=== PATIENT | female | born 2000 | race African-American/Black ===

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

== ENCOUNTER 2019-07-01 19:00 | Emergency (ER) | payer OTHER ==
[~2019-07-01] VITALS: Ht 165.1 cm; Wt 68.5 kg
[~2019-07-01 19:00] MED LIST: PREDNISONE 20 M20 MG PO; VENTOLIN HFA 1818 GM INH
[2019-07-01] MEDS ORDERED: IBU600 MG PO (19:44)
[2019-07-01 19:49] VITALS: BP 122/73
== END 2019-07-01 19:55 | disposition home or self-care (01) ==
LOC: ER 19:00
DX: S93.601A Unspecified sprain of right foot, initial encounter (principal); S93.401A Sprain of unspecified ligament of right ankle, initial encounter; J45.909 Unspecified asthma, uncomplicated; V89.2XXA Person injured in unspecified motor-vehicle accident, traffic, initial encounter; Y93.89 Activity, other specified; Y92.89 Other specified places as the place of occurrence of the external cause; Y99.8 Other external cause status

== ENCOUNTER 2020-06-19 17:33 | Emergency (ER) | payer OTHER ==
[~2020-06-19] VITALS: Ht 165.1 cm; Wt 76.7 kg
[~2020-06-19 17:33] MED LIST changes: +IBU600 MG PO
[2020-06-19 17:37] VITALS: BP 141/78
[2020-06-19] MEDS ORDERED: ROBAXIN 750 MG750 MG PO (17:44)
== END 2020-06-19 18:00 | disposition home or self-care (01) ==
LOC: ER 17:33
DX: S46.911A Strain of unspecified muscle, fascia and tendon at shoulder and upper arm level, right arm, initial encounter (principal); J45.909 Unspecified asthma, uncomplicated; Z79.1 Long term (current) use of non-steroidal anti-inflammatories (NSAID); Z79.899 Other long term (current) drug therapy; X58.XXXA Exposure to other specified factors, initial encounter; Y93.89 Activity, other specified; Y92.89 Other specified places as the place of occurrence of the external cause; Y99.8 Other external cause status